=== PATIENT | female | born 1995 | race Caucasian/White ===

== ENCOUNTER 2023-01-28 18:31 | Emergency (ER) | payer OTHER, SELFPAY ==
[2023-01-28 18:35] VITALS: BP 117/92; PULSE 69; RESP 18; TEMP 36.8; O2SAT 98; BMI 19.7
--- NOTE | 2023-01-28 18:39 | XR_ITS ---
[address] [address] Patient Name: LEIGH ANN CARLSON MRN: [id number] date: 1995 Sex: F Assigned Patient Location: ER Current Patient Location: Accession/Order Number: [id number] Exam Date: 01/28/2023 18:45 Report Date: 01/28/2023 19:34 At the request of: CAR LEE Procedure: XR shoulder RT min 2V EXAM: XR shoulder RT min 2V HISTORY: Shoulder pain COMPARISON: None. TECHNIQUE: 3 views FINDINGS: No osseous lesion, fracture, dislocation or subluxation. Joint spaces are normal. No visualized effusion. No visualized soft tissue edema. XR/XR shoulder RT min 2V IMPRESSION: Normal x-rays Electronically authenticated by: ADAM MARSHALL Date: 01/28/2023 19:34
--- NOTE | 2023-01-28 18:43 | ED.UPPEXIN1 ---
HPI - Extremity Injury (Upper) General Chief Complaint: Extremity Injury, Upper Stated Complaint: RT SHOULDER PAIN Time Seen by Provider: 01/28/23 18:33 Source: patient Mode of arrival: walk-in Limitations: no limitations History of Present Illness HPI narrative: patient is a 27-year-old female who presents to the emergency department for right shoulder pain. Patient states the pain began three days ago. She denies any mechanism of injury or trauma although she states she does a lot of lifting at her job. She had a leftover prescription of tizanidine at home which she took without significant improvement. She states she went to [facility] two days ago, no x-rays were performed she was diagnosed with a pulled muscle in the right shoulder. She states she was given a shot of muscle relaxants and anti-inflammatories in the Emergency Room which helped for approximately one day. She states she went to work today and had a significant worsening of the pain in the right shoulder over the right glenohumeral joint and right scapula, worse with abduction of the right shoulder. She denies numbness or tingling to the right arm. No pain in the right elbow or wrist. She denies a possibility of . Related Data Home Medications Medication Instructions Recorded Confirmed levothyroxine 75 mcg tablet 100 mcg PO DAILY 01/28/23 01/28/23 Previous Rx's Medication Instructions Recorded ketorolac 10 mg tablet 10 mg PO TID PRN pain #10 tabs 01/28/23 methocarbamol 750 mg tablet 750 mg PO TID PRN pain #20 tabs 01/28/23 prednisone 20 mg tablet See Rx Instructions .Route 01/28/23 .COMPLEX 5 days #8 tabs Allergies Allergy/AdvReac Type Severity Reaction Status Date / Time No Known Drug Allergies Allergy Verified 01/28/23 18:38 Review of Systems ROS Constitutional Denies: fever or chills Ears, nose, mouth, and throat Denies: throat pain or neck pain Cardiovascular Denies: chest pain Respiratory Denies: shortness of breath or cough Gastrointestinal Denies: nausea or vomiting Musculoskeletal Reports: extremity pain; Denies: back pain or neck pain Integumentary/Breast Denies: rash Neurological Denies: headache Hematologic/Lymphatic Denies: easy bruising Exam Narrative Exam Narrative: Gen.: Awake, alert, in no distress Head: Normocephalic, atraumatic ENT: Moist mucous membranes Respiratory: No respiratory distress Extremities: Limited abduction of the right shoulder, diffuse tenderness of the right superior shoulder, right scapula and right glenohumeral joint. No obvious deformity or sulcus sign. 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 Normal flexion and extension at the right elbow. No bony tenderness of the right humerus, right elbow or forearm. Psych: Normal mood and affect Neuro: No focal neuro deficit Skin: Warm, dry, intact Constitutional Vital Signs, click to edit/add: Last Vital Signs Temp 98.3 F 01/28/23 18:35 Pulse 69 01/28/23 18:35 Resp 18 01/28/23 18:35 BP 117/92 H 01/28/23 18:35 Pulse Ox 98 01/28/23 18:35 O2 Del Method Room Air 01/28/23 18:35 Course Vital Signs Vital signs: Vital Signs Temperature 98.3 F 01/28/23 18:35 Pulse Rate 69 01/28/23 18:35 Respiratory Rate 18 01/28/23 18:35 Blood Pressure 117/92 H 01/28/23 18:35 Pulse Oximetry 98 01/28/23 18:35 Oxygen Delivery Method Room Air 01/28/23 18:35 Temperature 98.3 F 01/28/23 18:35 Pulse Rate 69 01/28/23 18:35 Respiratory Rate 18 01/28/23 18:35 Blood Pressure 117/92 H 01/28/23 18:35 Pulse Oximetry 98 01/28/23 18:35 Oxygen Delivery Method Room Air 01/28/23 18:35 MDM - Extremity Injury (Upper) MDM Narrative Medical decision making narrative: right shoulder x-rays performed showing no evidence of acute bony abnormalities. Patient was placed back in the sling that she was given from [facility] and remains neurovascularly intact. Rest, ice, gentle stretching. Sling for 3-5 days only. Follow-up with PCP and return to the Emergency Room if symptoms change or worsen. Prednisone, anti-inflammatories and Robaxin given for home. Patient was instructed to hold the tizanidine. Medical Records Attestation: I reviewed the patient's medical records. Imaging Data XR right shoulder: Attestation: I personally reviewed and interpreted this imaging study as follows: My impression: no fracture, dislocation, soft tissue abnormality Discharge Plan Discharge Chief Complaint: Extremity Injury, Upper Clinical Impression: Right shoulder strain Patient Disposition: Home, Self-Care Time of Disposition Decision: 18:58 Prescriptions / Home Meds: New ketorolac 10 mg tablet 10 mg PO TID PRN (Reason: pain) Qty: 10 0RF methocarbamol 750 mg tablet 750 mg PO TID PRN (Reason: pain) Qty: 20 0RF prednisone 20 mg tablet See Rx Instructions .ROUTE .COMPLEX 5 Days Qty: 8 0RF Rx Instructions: 2 tabs daily for 3 days, then 1 tab daily for 2 days No Action levothyroxine 75 mcg tablet 100 mcg PO DAILY Instructions: Muscle Strain (ED), How to Use a Sling (ED), Shoulder Pain (ED) Stand Alone Forms: Portal Instructions Referrals: Physician,Non-Staff, MD [Primary Care Provider] - 1 week
[2023-01-28] MEDS: KETOROLAC TROMETHAMINE 60 MG/2 ML VIAL IM (19:08)
[2023-01-28] MEDS: PREDNISONE 20 MG TABLET 40 MG PO (19:09)
[2023-01-28] MEDS: METHOCARBAMOL 500 MG TABLET 750 MG PO (19:09)
== END 2023-01-28 19:19 | disposition home or self-care (01) ==
PROVIDERS: Emergency Provider Emergency Medicine Emergency Medical Services
DX: S46.912A Strain of unspecified muscle, fascia and tendon at shoulder and upper arm level, left arm, initial encounter (principal); X50.9XXA Other and unspecified overexertion or strenuous movements or postures, initial encounter; Z79.890 Hormone replacement therapy
CPT/HCPCS: 73030; 96372; 99284